=== PATIENT | female | born 2000 | race Caucasian/White ===

== ENCOUNTER 2023-11-03 07:26 | Emergency (ER) | payer BC ==
[~2023-11-03] VITALS: Ht 180.3 cm; Wt 59.0 kg
[2023-11-03 07:42] VITALS: BP 119/78; TEMP 98.3
[2023-11-03] MEDS ORDERED: DOXY100T2 PO (08:13)
[2023-11-03] MEDS ORDERED: CEFTRIAXONE 500 MG VIAL ONE (08:21)
[2023-11-03] MEDS ORDERED: LIDOCAINE /MPF 1% VIAL 5 ML VIAL ONE (08:21)
[2023-11-03] MEDS ORDERED: DOXYCYCLINE HYCLATE (100 MG) 100 MG TABLET ONE (08:22)
[2023-11-03] MEDS: CEFTRIAXONE 500 MG VIAL IM ONE (08:34)
[2023-11-03] MEDS: DOXYCYCLINE HYCLATE (100 MG) 100 MG TABLET PO ONE (08:34)
[2023-11-03 08:50] VITALS: O2SAT 99
[2023-11-03 08:54] LABS: PREGNANCY TEST URINE QUAL NEGATIVE (NEGATIVE)
[2023-11-03 09:17] LABS: APPEARANCE,URINE SLIGHTLY HAZY (CLEAR); COLOR,URINE ORANGE (YELLOW)
[2023-11-03 09:24] LABS: RBC,URINE 0-2 /HPF (0-2)
[2023-11-03 09:25] LABS: BACTERIA,URINE 1+ /HPF (None Seen); WBC,URINE 21-50 /HPF (0-3)
[2023-11-04 18:09] LABS: CHLAMYDIA TRACHOMATIS NAA Negative (Negative); NEISSERIA GONORRHOEAE NAA Negative (Negative)
== END 2023-11-03 08:50 | disposition home or self-care (01) ==
LOC: ER 07:34
DX: N34.2 Other urethritis (principal); J45.909 Unspecified asthma, uncomplicated
CPT/HCPCS: 99283; 96372; 84703; 81001; 87491; 87591; J0696; J3490

== ENCOUNTER 2023-11-08 18:27 | Emergency (ER) | payer BC ==
[~2023-11-08] VITALS: Ht 180.3 cm; Wt 59.9 kg
[~2023-11-08 18:27] MED LIST: DOXY100T2 PO
[2023-11-08 18:37] VITALS: BP 134/76; TEMP 97.7; O2SAT 98
[2023-11-08] MEDS ORDERED: HYDR59LO7 TP (19:02)
== END 2023-11-08 19:09 | disposition home or self-care (01) ==
LOC: ER 18:27
DX: L55.9 Sunburn, unspecified (principal); J45.909 Unspecified asthma, uncomplicated; Z79.899 Other long term (current) drug therapy